=== PATIENT | female | born 1960 | race Caucasian/White ===

== ENCOUNTER → 2016-07-20 | Outpatient (CLI) | payer OTHER ==
[~2016-07-20] MED LIST: BUTA1CAP17; CETI10TA84 PO; CHOL200027; ESCI10TA17 PO; FAMO20TA11 PO; FERR325T51 PO; FOLI1TAB7 PO; LEVO50TA PO; MAGNTAB4 PO; OPTIRAY 320 IV PRN; PHYT100T; PROM25TA9 PO; RIBO1TAB4; SUMA100T16 PO; VLSCR15 TOP; [UNRECOGNIZED DRUG - CODE]
--- NOTE | 2016-07-20 13:37 | DIAGNOSTIC IMAGING REPORT ---
CT OF THE HEAD WITHOUT CONTRAST AND CT ANGIOGRAPHY OF THE HEAD WITH CONTRAST CT DOSE: 725.81 mGy.cm CLINICAL HISTORY: New onset headaches. TECHNIQUE: Unenhanced and arterial phase images of the head were obtained. Injection of 93 cc Optiray 320 IV was uneventful. Sagittal and coronal reconstructions were reviewed as well as maximal intensity projections on an independent 3-D workstation. COMPARISON STUDY: MRI of the brain September 21, 2015. FINDINGS: No acute intracranial hemorrhage, midline shift or mass effect is present. Ventricular system is normal. The basilar cisterns are patent. There are no extra-axial collections. Jennings-white differentiation is maintained. There are no findings to suggest acute dural sinus thrombosis or acute territorial infarct. The bilateral M1, M2, A1 and A2 segments are patent. The right A1 segment is diminutive. No abrupt vessel cut off or intracranial aneurysm is identified. The posterior circulation is intact. There are a few opacified bilateral mastoid air cells which are unchanged since prior MRI. The orbits are unremarkable. Sinuses are clear within visualized portions. IMPRESSION: 1. No acute intracranial findings. 2. Unremarkable CTA of the head. Electronically signed by: Roger Coffey M.D. 07/20/2016 1:36 PM Dictated Date/Time: 07/20/2016 1:31 PM
== END | disposition home or self-care (01) ==
LOC: C.CTS 12:05
PROVIDERS: ATTEND Psychiatry & Neurology Neurology
DX: R51 Headache (principal)

== ENCOUNTER → 2016-08-14 | Outpatient (CLI) | payer OTHER ==
[~2016-08-14] MED LIST changes: -OPTIRAY 320 IV PRN
[2016-08-14 16:20] LABS: ESTIMATED AVERAGE GLUCOSE 117 mg/dl; HA1C FLAG Normal (Normal)
[2016-08-14 16:26] LABS: BLOOD UREA NITROGEN 14 mg/dl (7-18); BUN/CREATININE RATIO 16.9 (10-20); CALCIUM 9.1 mg/dl (8.5-10.1); CARBON DIOXIDE 30 mmol/L (21-32); CHLORIDE 103 mmol/L (98-107); CREATININE 0.82 mg/dl (0.60-1.20); GLUCOSE 90 mg/dl (70-99); POTASSIUM 3.9 mmol/L (3.5-5.1); SODIUM 140 mmol/L (136-145)
[2016-08-14 16:36] LABS: THYROID STIMULATING HORMONE 0.907 uIu/ml (0.300-4.500)
== END | disposition home or self-care (01) ==
LOC: C.LAB 14:59
PROVIDERS: ATTEND Family Medicine
DX: G43.709 Chronic migraine without aura, not intractable, without status migrainosus (principal); R73.01 Impaired fasting glucose; E03.9 Hypothyroidism, unspecified; E55.9 Vitamin D deficiency, unspecified